=== PATIENT | male | born 1985 | race Caucasian/White ===

== ENCOUNTER 2021-10-09 13:08 | Inpatient (IN) ==
[2021-10-09 13:27] LABS: ABS Basophils 0.1 10^3/ul (0-0.2); ABS Eosinophils 0.1 10^3/ul (0-0.6); ABS Lymphocytes 2.4 10^3/ul (1.0-4.8); ABS Monocytes 1.3 10^3/ul (0-0.8); ABS Neutrophils 10.4 10^3/ul (1.5-7.7); ABS Nucleated RBC 0.1 10^3/ul; Eosinophil % 0.4 %; Hematocrit 50 % (42-52); Hemoglobin 17.6 g/dL (14.0-18.0); Lymphocyte % 17.1 %; Mean Corpuscular HGB Conc 35 g/dL (31-36); Mean Corpuscular Hemoglobin 33 pg (27-31); Mean Corpuscular Volume 94 fL (80-94); Mean Platelet Volume 8.3 fL (7.4-10.4); Nucleated Red Blood Cells % 0.6; Platelet Count 244 10^3/uL (150-450); Red Blood Count 5.33 10^6 /uL (4.18-5.48); Red Cell Distribution Width 14 % (10-15); White Blood Count 14.2 10^3/uL (3.5-10.8)
[2021-10-09 13:37] LABS: INR 1.04 (0.86-1.15)
[2021-10-09 14:08] LABS: Albumin 5.1 g/dL (3.2-5.2); Albumin/Globulin Ratio 1.8 (1-3); Calcium 10.9 mg/dL (8.6-10.3); Globulin 2.9 g/dL (2-4); Potassium 4.4 mmol/L (3.5-5.0); Total Bilirubin 0.9 mg/dL (0.2-1.0); eGFR CKD-EPI 38.7 (>60)
[2021-10-09] MEDS ORDERED: NS 0.9% 1000 ml BAG 1,000 ML IV ONE (16:41)
[2021-10-09 18:11] LABS: Troponin I 0.01 ng/mL (<0.03)
[2021-10-09 18:55] LABS: Calcium 10.2 mg/dL (8.6-10.3)
[2021-10-09] MEDS ORDERED: Lactated Ringers 1000 ml BAG 1,000 ML IV SCH (19:00)
[2021-10-09] MEDS ORDERED: Al Hydrox/Mg Hydrox/Simet LIQ 30 ML UDC PO PRN (19:05)
[2021-10-09] MEDS ORDERED: Ondansetron 4 mg VIAL 2 MG/ML 2 ml VIAL IV PRN (19:05)
[2021-10-09 20:01] LABS: Urine Appearance Cloudy; Urine Bilirubin Negative (Negative); Urine Blood Negative (Negative); Urine Color Amber; Urine Glucose Negative (Negative); Urine Ketones Trace (Negative); Urine Nitrite Negative (Negative); Urine Protein 2+(100 mg/dL) (Negative); Urine Specific Gravity 1.017 (1.002-1.030); Urine Urobilinogen Negative (Negative)
[2021-10-09 20:06] LABS: Urine Bacteria Absent (Absent); Urine Red Blood Cell 1+(3-5/hpf) (Absent); Urine White Blood Cell 2+(11-20/hpf) (Absent)
[2021-10-09 20:25] LABS: Urine Creatinine Concentration 197.57 mg/dL
[2021-10-09 20:35] LABS: Calcium (PTH Intact) 9.6 mg/dL (8.6-10.3)
[2021-10-09] MEDS: Heparin 5000 UNITS/ML 1 mL VIAL SUBCUT SCH (21:13)
[2021-10-09 21:31] LABS: Rapid COVID-19 Molecular Undetected (Undetected)
[2021-10-09 21:46] LABS: Urine Creatinine 203.07 mg/dL
[2021-10-09 22:08] LABS: UR Microalbumin (mg/L) 521.7 mg/L; Urine Microalbumin/Creatinine 256.9 (<31)
[2021-10-10] MEDS: Buprenorp/Nalox 8-2 MG FILM SL FILM SCH ×2 (00:02→09:51)
[2021-10-10 04:20] LABS: ABS Eosinophils 0.2 10^3/ul (0-0.6); ABS Lymphocytes 2.1 10^3/ul (1.0-4.8); ABS Monocytes 0.6 10^3/ul (0-0.8); ABS Neutrophils 3.3 10^3/ul (1.5-7.7); Eosinophil % 3.1 %; Hematocrit 41 % (42-52); Hemoglobin 14.3 g/dL (14.0-18.0); Lymphocyte % 34.3 %; Mean Corpuscular HGB Conc 35 g/dL (31-36); Mean Corpuscular Hemoglobin 33 pg (27-31); Mean Corpuscular Volume 95 fL (80-94); Mean Platelet Volume 8.7 fL (7.4-10.4); Nucleated Red Blood Cells % 0.1; Platelet Count 185 10^3/uL (150-450); Red Blood Count 4.33 10^6 /uL (4.18-5.48); Red Cell Distribution Width 14 % (10-15); White Blood Count 6.2 10^3/uL (3.5-10.8)
[2021-10-10 04:38] LABS: Calcium 8.8 mg/dL (8.6-10.3); Magnesium 1.9 mg/dL (1.9-2.7); Potassium 3.9 mmol/L (3.5-5.0); eGFR CKD-EPI 62.4 (>60)
[2021-10-10] MEDS: Heparin 5000 UNITS/ML 1 mL VIAL SUBCUT SCH (05:23)
[2021-10-10] MEDS ORDERED: Magnesium Sulfate 2 gm BAG 2 GM/50 ML BAG IVPB ONE (07:01)
[2021-10-10] MEDS ORDERED: Potassium Chlor 20 meq TAB.ER PO ONE (07:02)
[2021-10-10] MEDS ORDERED: Nicotine PATCH 21 MG/24 HR PATCH TRANSDERM SCH (08:00)
[2021-10-10] MEDS ORDERED: CARIPRAZINE 4.5 MG PO SCH (09:00)
[2021-10-10] MEDS ORDERED: Perflutren Lipid Microsphere 3 ML VIAL ONE (09:07)
[2021-10-10 09:59] LABS: TSH Ultra Thyroid Stim Horm 3.09 mcIU/mL (0.34-5.60)
[2021-10-10 11:59] VITALS: BP 113/74
== END 2021-10-10 12:45 | disposition home or self-care (01) | DRG 204 ==
LOC: ED 13:08 → EDHOLD 18:59 → MEDTELE 22:12
PROVIDERS: ADMIT Hospitalist; ATTEND Hospitalist